=== PATIENT | male | born 1995 | race Caucasian/White ===

== ENCOUNTER 2018-04-02 16:19 | Emergency (ER) | payer OTHER ==
--- NOTE | 2018-04-02 17:03 | CR ---
Clinical history: 23-year-old male injured right hand "while training". Interpretation: Acute "boxer's" fracture distal end of the fifth metacarpal right hand with typical m ild volar angulation deformity. No sign of other fracture/dislocation right hand or wrist. Wristband artifact.
--- NOTE | 2018-04-02 18:01 | EDM.PDOC ---
Scribed by Tamra Pratt 04/02/18 2323 for Navi Marroquin MD ED HPI GENERAL MEDICAL PROBLEM - General Chief Complaint: Upper Extremity Injury/Pain Stated Complaint: RT HAND PINKY FINGER Time Seen by Provider: 04/02/18 16:43 Source of Information: Reports: Patient, RN, RN Notes Reviewed History Limitations: Reports: No Limitations - History of Present Illness INITIAL COMMENTS - FREE TEXT/NARRATIVE: Pt [facility] POV with c/o Rt had pain sustained today while training at [place], [place] when pt accidentally struck a wall with his right hand. Pt denies any other injury. No prior history of fracture to right hand. Onset: Today Duration: Constant Location: Reports: Upper Extremity, Right Quality: Reports: Ache Severity: Moderate Improves with: Reports: None Worsens with: Reports: None Associated Symptoms: Reports: No Other Symptoms Right Hand Pain Score (Numeric/FACES): 5 - Related Data Allergies Allergy/AdvReac Type Severity Reaction Status Date / Time No Known Allergies Allergy Verified 04/02/18 16:49 Home Meds: Home Meds . [No Known Home Meds] 04/02/18 [History] Past Medical History - Past Health History Medical/Surgical History: Denies Medical/Surgical History Social & Family History - Family History Family Medical History: Noncontributory - Living Situation & Occupation Living situation: Reports: Other (Lives in [place], [place]) Occupation: Employed Review of Systems - Review of Systems Review Of Systems: ROS reveals no pertinent complaints other than HPI. ED EXAM, GENERAL - Physical Exam Exam: See Below Exam Limited By: No Limitations General Appearance: Alert Throat/Mouth: Normal Voice, No Airway Compromise Head: Atraumatic, Normocephalic Neck: Normal Inspection Respiratory/Chest: No Respiratory Distress Peripheral Pulses: 3+: Radial (L), Radial (R) Extremities: Normal Capillary Refill, Joint Swelling (overlying right 5th MCPJ) , Limited Range of Motion (Rt 5th MCPJ), Other (bruising to dorsal ulnar hand) Neurological: Alert, Oriented, No Motor/Sensory Deficits Psychiatric: Normal Mood Skin Exam: Warm, Dry, Intact ED TRAUMA EXTREMITY PROCEDURES - Splinting Right Upper Extremity Splint Site: Rt hand, Boxer's fracture Pre-Procedure NV Status: Normal Post-Procedure NV Status: Normal Splint Material: Fiberglass Splint Design: Boxer Splint Applied & Form Fitted By: Provider Provider Post-Splint Application NV Check: NV Status Normal, Good Position Complications: No Course - Vital Signs Last Recorded V/S: Last Vital Signs Temp 36.6 C 04/02/18 16:43 Pulse 82 04/02/18 16:43 Resp 16 04/02/18 16:43 BP 131/79 04/02/18 16:43 Pulse Ox 100 04/02/18 16:43 - Radiology Interpretation Free Text/Narrative:: Right hand x-ray: Acute boxer's fracture distal end of the 5th metacarpal right hand with typical mild volar angulation deformity. See rad report. Departure - Departure Time of Disposition: 17:33 Disposition: Home, Self-Care 01 Condition: Good Clinical Impression: Work related injury Boxers fracture Qualifiers: Encounter type: initial encounter Fracture type: closed Qualified Code(s): S62.339A - Displaced fracture of neck of unspecified metacarpal bone, initial encounter for closed fracture - Discharge Information Instructions: Boxer's Fracture Forms: ED Department Discharge Additional Instructions: Do not remove splint. Monitor right fingertips. if they become either cold or numb you can loosen the Eligio wrap but do not remove splint. Call your primary doctor in [place] tomorrow for referral to orthopedic surgeon for evaluation and treatment of right Boxers fracture. Use [id number] Tylenol or Ibuprofen as needed for pain. Follow package instructions for doses and precautions. I have read and agree with the documentation that has been completed regarding this visit. By signing this record, I attest that the documentation was completed in my physical presence and is an accurate record of the encounter.
== END 2018-04-02 17:40 | disposition home or self-care (01) ==
LOC: DL.ED 16:19
DX: S62.336A Displaced fracture of neck of fifth metacarpal bone, right hand, initial encounter for closed fracture (principal); W22.8XXA Striking against or struck by other objects, initial encounter; Y99.0 Civilian activity done for income or pay
CPT/HCPCS: 29125; 73130-RT; 99283